=== PATIENT | male | born 1965 | race Caucasian/White ===

== ENCOUNTER 2016-09-10 10:45 | Outpatient (RCR) | payer BC ==
[~2016-09-10 10:45] MED LIST changes: -NORCO 325 MG-7.1 TA1 PO
[2016-09-17] MEDS ORDERED: NORCO 325 MG-7.1 TA1 PO (12:36)
[2016-09-17 13:00] VITALS: BP 131/82
[2016-09-24 11:43] VITALS: BP 124/86
[2016-10-01 11:01] VITALS: BP 129/91
[2016-10-08 11:49] VITALS: BP 142/91
[2016-10-11 16:50] VITALS: BP 148/88
== END 2016-12-09 | disposition home or self-care (01) ==
LOC: AMSURD
DX: T84.51XD Infection and inflammatory reaction due to internal right hip prosthesis, subsequent encounter (principal)
CPT/HCPCS: 15839; A5200

== ENCOUNTER → 2016-09-10 | Outpatient (CLI) | payer BC ==
[~2016-09-10] MED LIST: ADULT LOW DOSE81 MG PO; AMLOPIDINE PO; CITRUCEL WITH500 MG PO; DAILY VALUE1 EACH PO; FLONASE NASAL S16 GM NS; FOLIC ACID1 MG PO; IRON TABLETS325 MG PO; LISINOPRIL1 POW PO; LISINOPRIL20 MG PO; LISINOPRIL40 MG PO; LOPRESSOR 550 MG/TAB PO; LORCET1 TAB PO; NORCO 325 MG-7.1 TA1 PO; NORVASC10 M1 PO; OMEGA 3 1,0001 EACH PO; OMEGA 31000 MG PO; OMEGA-3 FISH1000 MG PO; OMEGA-31000 M1 PO; OXYCODONE PO; PERCOCET 325 MG1 TA2 PO; POTASSIUM CH2 MEQ/ML PO; PRILOSEC 20MG20 MG PO; VITAMIN C500 MG PO
== END ==
LOC: LAB 10:38
DX: T84.51XD Infection and inflammatory reaction due to internal right hip prosthesis, subsequent encounter (principal)

== ENCOUNTER → 2016-09-17 | Outpatient (CLI) | payer BC ==
[~2016-09-17] MED LIST changes: +NORCO 325 MG-7.1 TA1 PO
== END ==
LOC: LAB 12:37
DX: T84.51XA Infection and inflammatory reaction due to internal right hip prosthesis, initial encounter (principal)

== ENCOUNTER → 2016-09-24 | Outpatient (CLI) | payer BC | LOC: LAB 11:04 | DX: T84.51XD Infection and inflammatory reaction due to internal right hip prosthesis, subsequent encounter (principal); Z48.00 Encounter for change or removal of nonsurgical wound dressing ==

== ENCOUNTER → 2016-10-01 | Outpatient (CLI) | payer BC | LOC: LAB 10:34 | DX: T84.51XD Infection and inflammatory reaction due to internal right hip prosthesis, subsequent encounter (principal) ==

== ENCOUNTER → 2016-10-08 | Outpatient (CLI) | payer BC | LOC: LAB 10:56 | DX: T84.51XD Infection and inflammatory reaction due to internal right hip prosthesis, subsequent encounter (principal) ==

== ENCOUNTER → 2016-10-30 | Outpatient (CLI) | payer BC ==
[2016-10-30 10:49] VITALS: BP 143/95
== END ==
LOC: AMSURD 10:33
DX: Z01.818 Encounter for other preprocedural examination (principal); T84.51XA Infection and inflammatory reaction due to internal right hip prosthesis, initial encounter; N18.3 Chronic kidney disease, stage 3 (moderate); I10 Essential (primary) hypertension; G47.33 Obstructive sleep apnea (adult) (pediatric); K21.9 Gastro-esophageal reflux disease without esophagitis

== ENCOUNTER → 2017-05-01 | Outpatient (CLI) | payer BC ==
[2016-10-30 10:49] VITALS: BP 143/95
== END ==
LOC: VAS 11:28
DX: M79.605 Pain in left leg (principal)

== ENCOUNTER → 2017-05-15 | Outpatient (CLI) | payer BC ==
[2016-10-30 10:49] VITALS: BP 143/95
== END ==
LOC: LAB 15:59
DX: D64.89 Other specified anemias (principal)

== ENCOUNTER → 2017-05-16 | Outpatient (CLI) | payer BC ==
[2016-10-30 10:49] VITALS: BP 143/95
== END ==
LOC: LAB 10:18
DX: L30.9 Dermatitis, unspecified (principal)

== ENCOUNTER → 2017-07-22 | Day surgery (SDC) | payer BC ==
[2016-10-30 10:49] VITALS: BP 143/95
== END ==
LOC: MSO 09:57
DX: K92.1 Melena (principal); K57.30 Diverticulosis of large intestine without perforation or abscess without bleeding; G47.33 Obstructive sleep apnea (adult) (pediatric); F17.210 Nicotine dependence, cigarettes, uncomplicated
CPT/HCPCS: 00810; A4649; J7120

== ENCOUNTER → 2021-08-14 | Outpatient (CLI) | payer BC ==
[~2021-08-14] MED LIST changes: +ACETAMINOPHEN-H1 TA2 PO; +CIPRO 500MG TA500 MG PO; +CYCLOBENZAPRINE10 M1 PO; +DOXYCYCLINE MO100 M3 PO; +DULOXETINE60 MG PO; +EC-NAPROXEN500 MG PO; +HCTZ 25MG25 MG PO; +LASIX20 M1 PO; +LEVOTHYROXINE0.05 MG PO; +LEVOTHYROXINE75 MCG PO; +MUPIROCIN2% TP; +NEURONTIN300 MG/CAP PO; +TESTOSTERONE75 GM TD; +VITAMIN D325 MC2 PO
[2021-08-14 09:56] LABS: HEMOGLOBIN 9.3 g/dL (13.5-18.0); MEAN PLATELET VOLUME 8.6 fl (7.4-10.4); RED BLOOD COUNT 3.25 M/mm3 (4.20-5.60); RED CELL DISTRIBUTION WIDTH 13.5 % (11.5-14.5); WHITE BLOOD COUNT 4.4 K/mm3 (4.8-10.8)
[2021-08-14 10:09] LABS: ALBUMIN 3.5 g/dL (3.5-5.0)
[2021-08-14 10:10] LABS: POTASSIUM 4.1 mmol/L (3.5-5.1)
[2021-08-14 10:11] LABS: CALCIUM 9.5 mg/dL (8.3-10.5)
[2021-08-14 10:12] LABS: TOTAL PROTEIN 7.7 g/dL (6.4-8.3)
[2021-08-14 10:14] LABS: TOTAL BILIRUBIN 0.9 mg/dL (0.2-1.2)
== END ==
LOC: LAB 09:16
PROVIDERS: Internal Medicine Infectious Disease
DX: T84.51XA Infection and inflammatory reaction due to internal right hip prosthesis, initial encounter (principal)

== ENCOUNTER → 2021-08-21 | Outpatient (CLI) | payer BC ==
[2021-08-21 10:40] LABS: HEMATOCRIT 28.9 % (42.0-52.0); MEAN PLATELET VOLUME 8.7 fl (7.4-10.4); RED BLOOD COUNT 3.19 M/mm3 (4.20-5.60); WHITE BLOOD COUNT 4.2 K/mm3 (4.8-10.8)
[2021-08-21 11:39] LABS: ALBUMIN 3.6 g/dL (3.5-5.0); POTASSIUM 4.3 mmol/L (3.5-5.1)
[2021-08-21 11:40] LABS: CALCIUM 9.4 mg/dL (8.3-10.5)
[2021-08-21 11:42] LABS: TOTAL PROTEIN 8.1 g/dL (6.4-8.3)
[2021-08-21 11:44] LABS: TOTAL BILIRUBIN 0.5 mg/dL (0.2-1.2)
== END ==
LOC: LAB 20:37
PROVIDERS: Internal Medicine Infectious Disease
DX: T84.51XA Infection and inflammatory reaction due to internal right hip prosthesis, initial encounter (principal); M00.9 Pyogenic arthritis, unspecified

== ENCOUNTER 2021-08-25 22:10 | Outpatient (RCR) | payer BC ==
[2021-08-12 10:06] VITALS: BP 104/74
[2021-08-12 20:19] VITALS: BP 127/76
[2021-08-13 09:50] VITALS: BP 122/97
[2021-08-13 21:00] VITALS: BP 135/88
[2021-08-14 09:51] VITALS: BP 122/75
--- NOTE | 2021-08-14 09:52 | NUR ---
[facility] from [facility]. Good blood return and flushes easily.
[2021-08-14 10:20] VITALS: BP 113/71
[2021-08-14 20:23] VITALS: BP 129/76
[2021-08-15 09:23] VITALS: BP 119/78
[2021-08-15 10:00] VITALS: BP 122/77
[2021-08-15 19:56] VITALS: BP 128/77
[2021-08-16 20:37] VITALS: BP 114/73
[2021-08-17 09:37] VITALS: BP 110/70
--- NOTE | 2021-08-17 09:38 | NUR ---
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 WILL WANT TO DO TONIGHT OR TOMORROW.
[2021-08-17 20:20] VITALS: BP 115/78
--- NOTE | 2021-08-17 20:30 | NUR ---
Explained his [facility] dressing change is due and patient states he had a frustating day and requests it be done tomorrow.
[2021-08-17 20:50] VITALS: BP 121/78
[2021-08-17 21:20] VITALS: BP 115/83
--- NOTE | 2021-08-18 10:18 | NUR ---
Patients called, states that they just woke up and forgot they have an appointment at 11, so the patient will not be coming for his 0900 antibiotic dose. Patient is scheduled for 0900 and 2100. states that he will come early this evening "because it's brionna brice." Explained that doses need to be 12 hours apart, and should be continued at 0900 and 2100. Stated to patient's that this was the 2nd dose that he has missed, states "yea, well I can't make him come." Will notify provider today.
--- NOTE | 2021-08-18 10:30 | NUR ---
Attempted to call Dr. Cardenas regarding missed antibiotic doses. Unable to leave message due to holiday. Will call Dr. Cardenas again Saturday.
[2021-08-18 20:30] VITALS: BP 128/88
[2021-08-19 09:30] VITALS: BP 125/74
[2021-08-19 21:30] VITALS: BP 137/84
[2021-08-20 10:00] VITALS: BP 111/80
[2021-08-20 10:28] VITALS: BP 111/70
--- NOTE | 2021-08-20 22:12 | NUR ---
Patient currently has been a no show for his 1999 scheduled IV antibiotic infusion.
[2021-08-20 22:25] VITALS: BP 134/84
--- NOTE | 2021-08-20 22:31 | NUR ---
Patient shows up now for IV ABT.
[2021-08-21 10:24] VITALS: BP 120/83
[2021-08-21 23:01] VITALS: BP 149/98
[2021-08-22 10:21] VITALS: BP 127/81
[2021-08-22 22:45] VITALS: BP 129/77
[2021-08-23 10:40] VITALS: BP 125/72
[2021-08-23 11:25] VITALS: BP 136/68
[2021-08-23 22:12] VITALS: BP 111/81
[2021-08-24 09:40] VITALS: BP 141/62
[2021-08-24 23:11] VITALS: BP 120/77
[2021-08-24 23:32] VITALS: BP 118/73
[~2021-08-25] VITALS: Ht 175.3 cm; Wt 105.5 kg
[2021-08-25 10:37] VITALS: BP 127/83
[~2021-08-25 22:10] MED LIST changes: -LEVOTHYROXINE75 MCG PO
[2021-08-25 22:40] VITALS: BP 144/89
[2021-08-25 23:10] VITALS: BP 143/76
[2021-08-26 11:05] VITALS: BP 134/88
[2021-08-26 11:49] VITALS: BP 130/84
[2021-08-26 22:59] VITALS: BP 125/84
[2021-08-30] MEDS ORDERED: LEVOTHYROXINE75 MCG PO (22:04)
== END 2021-08-25 23:00 | disposition home or self-care (01) ==
LOC: AMSURD 22:10
DX: T84.51XA Infection and inflammatory reaction due to internal right hip prosthesis, initial encounter (principal)
CPT/HCPCS: J0692

== ENCOUNTER → 2021-08-28 | Outpatient (CLI) | payer BC ==
[~2021-08-28] MED LIST changes: +ALBENDAZOLE200 MG PO; +LEVOTHYROXINE100 MC1 PO; +LEVOTHYROXINE75 MCG PO
[2021-08-28 10:50] LABS: HEMATOCRIT 27.5 % (42.0-52.0); HEMOGLOBIN 8.8 g/dL (13.5-18.0); MEAN PLATELET VOLUME 8.6 fl (7.4-10.4); RED BLOOD COUNT 3.06 M/mm3 (4.20-5.60); RED CELL DISTRIBUTION WIDTH 14.6 % (11.5-14.5); WHITE BLOOD COUNT 3.1 K/mm3 (4.8-10.8)
[2021-08-28 11:00] LABS: ALBUMIN 3.4 g/dL (3.5-5.0); POTASSIUM 4.5 mmol/L (3.5-5.1)
[2021-08-28 11:03] LABS: TOTAL PROTEIN 7.7 g/dL (6.4-8.3)
[2021-08-28 11:04] LABS: TOTAL BILIRUBIN 0.3 mg/dL (0.2-1.2)
== END ==
LOC: LAB 10:23
PROVIDERS: Internal Medicine Infectious Disease
DX: T84.51XA Infection and inflammatory reaction due to internal right hip prosthesis, initial encounter (principal)

== ENCOUNTER → 2021-09-04 | Outpatient (CLI) | payer BC ==
[~2021-09-04] MED LIST changes: -ALBENDAZOLE200 MG PO; -LEVOTHYROXINE100 MC1 PO
[2021-09-04 23:52] LABS: HEMATOCRIT 29.7 % (42.0-52.0); HEMOGLOBIN 9.5 g/dL (13.5-18.0); MEAN PLATELET VOLUME 9.3 fl (7.4-10.4); RED BLOOD COUNT 3.31 M/mm3 (4.20-5.60); RED CELL DISTRIBUTION WIDTH 15.9 % (11.5-14.5); WHITE BLOOD COUNT 4.5 K/mm3 (4.8-10.8)
[2021-09-04 23:56] LABS: ALBUMIN 3.7 g/dL (3.5-5.0)
[2021-09-04 23:57] LABS: POTASSIUM 4.5 mmol/L (3.5-5.1)
[2021-09-04 23:58] LABS: CALCIUM 9.4 mg/dL (8.3-10.5)
[2021-09-04 23:59] LABS: TOTAL PROTEIN 8.4 g/dL (6.4-8.3)
[2021-09-05 00:01] LABS: TOTAL BILIRUBIN 0.5 mg/dL (0.2-1.2)
== END ==
LOC: LAB 22:00
PROVIDERS: Internal Medicine Infectious Disease
DX: T84.51XA Infection and inflammatory reaction due to internal right hip prosthesis, initial encounter (principal)

== ENCOUNTER 2021-09-08 22:59 | Outpatient (RCR) | payer BC ==
[2021-08-26 22:51] VITALS: BP 125/84
[2021-08-26 23:28] VITALS: BP 130/78
[2021-08-27 09:59] VITALS: BP 120/83
[2021-08-27 22:37] VITALS: BP 144/88
[2021-08-28 10:35] VITALS: BP 130/87
[2021-08-28 22:30] VITALS: BP 137/85
[2021-08-29 11:00] VITALS: BP 148/93
[2021-08-29 22:44] VITALS: BP 142/87
[2021-08-30 11:48] VITALS: BP 132/87
[2021-08-30 22:00] VITALS: BP 132/81
[2021-08-31 10:00] VITALS: BP 132/87
[2021-08-31 21:58] VITALS: BP 142/88
[2021-08-31 22:30] VITALS: BP 132/81
[2021-09-01 09:50] VITALS: BP 133/89
[2021-09-01 22:11] VITALS: BP 131/86
[2021-09-01 22:50] VITALS: BP 128/86
[2021-09-02 11:33] VITALS: BP 126/89
[2021-09-03 00:15] VITALS: BP 129/79
[2021-09-03 00:48] VITALS: BP 125/81
[2021-09-03 11:14] VITALS: BP 131/83
[2021-09-03 21:20] VITALS: BP 147/91
--- NOTE | 2021-09-04 11:00 | NUR ---
Patient's calls, states that patient is not coming for his am antibiotic dose because he is running late for a meeting. states that he will just come later for his 2100 dose.
[2021-09-04 21:55] VITALS: BP 136/84
--- NOTE | 2021-09-05 10:41 | NUR ---
Voice message left for Dr. Cardenas regarding missed dose yesterday morning.
[2021-09-05 11:10] VITALS: BP 131/79
[2021-09-05 23:05] VITALS: BP 109/76
[2021-09-06 11:08] VITALS: BP 120/74
[2021-09-06 22:43] VITALS: BP 135/99
[2021-09-07 10:31] VITALS: BP 119/78
[2021-09-07 22:30] VITALS: BP 459/99
[~2021-09-08] VITALS: Ht 175.3 cm; Wt 105.5 kg
[2021-09-08 10:47] VITALS: BP 126/81
[2021-09-08 23:07] VITALS: BP 124/86
--- NOTE | 2021-09-09 08:58 | NUR ---
Dr Cardenas calls with verbal orders to check CBC on Saturday and DC PICC. Pt updated on plan
== END 2021-09-08 23:50 | disposition home or self-care (01) ==
LOC: AMSURD 22:59
DX: T84.51XA Infection and inflammatory reaction due to internal right hip prosthesis, initial encounter (principal)
CPT/HCPCS: J0692

== ENCOUNTER → 2021-09-08 | Outpatient (CLI) | payer BC ==
[2021-09-08 11:37] LABS: HEMATOCRIT 29.1 % (42.0-52.0); HEMOGLOBIN 9.2 g/dL (13.5-18.0); MEAN PLATELET VOLUME 9.8 fl (7.4-10.4); RED BLOOD COUNT 3.24 M/mm3 (4.20-5.60); RED CELL DISTRIBUTION WIDTH 16.4 % (11.5-14.5); WHITE BLOOD COUNT 2.9 K/mm3 (4.8-10.8)
[2021-09-08 11:40] LABS: ALBUMIN 3.5 g/dL (3.5-5.0); POTASSIUM 4.2 mmol/L (3.5-5.1)
[2021-09-08 11:42] LABS: CALCIUM 9.2 mg/dL (8.3-10.5)
[2021-09-08 11:45] LABS: TOTAL BILIRUBIN 0.4 mg/dL (0.2-1.2)
[2021-09-08 12:54] LABS: TOTAL PROTEIN 8.2 g/dL (6.4-8.3)
== END ==
LOC: LAB 08:58
PROVIDERS: Internal Medicine Infectious Disease
DX: T84.51XA Infection and inflammatory reaction due to internal right hip prosthesis, initial encounter (principal); X58.XXXA Exposure to other specified factors, initial encounter

== ENCOUNTER 2022-04-03 20:04 | Outpatient (RCR) | payer BC ==
[2022-03-27 20:00] VITALS: BP 90/59
[2022-03-28 11:00] VITALS: BP 97/72
[2022-03-28 20:29] VITALS: BP 92/66
[2022-03-29 20:20] VITALS: BP 64/40
[2022-03-30 20:00] VITALS: BP 98/56
[2022-03-31 20:40] VITALS: BP 88/50
[2022-04-01 20:00] VITALS: BP 75/47
[~2022-04-03] VITALS: Ht 175.3 cm; Wt 105.5 kg
== END 2022-04-25 | disposition home or self-care (01) ==
LOC: AMSURD
DX: L08.9 Local infection of the skin and subcutaneous tissue, unspecified (principal)
CPT/HCPCS: J0878

== ENCOUNTER → 2022-04-03 | Outpatient (CLI) | payer BC ==
[~2022-04-03] MED LIST changes: +ALBENDAZOLE200 MG PO; +LEVOTHYROXINE100 MC1 PO
[2022-04-03 21:08] LABS: CALCIUM 8.9 mg/dL (8.3-10.5)
[2022-04-03 21:10] LABS: TOTAL PROTEIN 8.1 g/dL (6.4-8.3)
[2022-04-03 21:11] LABS: TOTAL BILIRUBIN 0.5 mg/dL (0.2-1.2)
[2022-04-03 21:14] LABS: POTASSIUM 6.7 mmol/L (3.5-5.1)
[2022-04-03 21:20] LABS: HEMATOCRIT 28.9 % (42.0-52.0); HEMOGLOBIN 8.8 g/dL (13.5-18.0); MEAN PLATELET VOLUME 8.9 fl (7.4-10.4); RED BLOOD COUNT 3.34 M/mm3 (4.20-5.60); RED CELL DISTRIBUTION WIDTH 19.4 % (11.5-14.5)
[2022-04-03 21:23] LABS: WHITE BLOOD COUNT 24.4 K/mm3 (4.8-10.8)
== END ==
LOC: LAB 20:05
PROVIDERS: Family Medicine
DX: L08.9 Local infection of the skin and subcutaneous tissue, unspecified (principal)